=== PATIENT | female | born 1990 | race Caucasian/White ===

== ENCOUNTER 2018-05-29 10:25 | Emergency (ER) | payer OTHER ==
--- NOTE | 2018-05-29 10:53 | UC ---
Eye Complaint HPI - HPI Summary HPI Summary: 27 y/o female presents to the urgent care c/o B/L eye redness and yellowish crusting eye discharge since this morning when she woke up. Pt reports she severe sinusitis around Thanksgiving and her PCP Rx Amoxicillin PO for 10 days. She took full course of ABX and finished it about 1 week ago. she started to developed some yellowish PND and nasal congestion about 2 days ago again. she used some OTC eye drops yesterday to alleviate symptoms w/o any improvement. Pt denies fever, eye pain, photophobia, MONTES, dizziness, SOB, chest pain. abdominal pain, N/v/D. - History of Current Complaint Chief Complaint: UCEye Stated Complaint: EYE ISSUE Time Seen by Provider: 05/29/18 10:47 Hx Obtained From: Patient Hx Last Menstrual Period: 05/21/18 ?: No Onset/Duration: Gradual Onset, Lasting Days - 2 day, Still Present, Worse Since - today Timing: Constant Severity Initially: Mild Severity Currently: Mild Pain Intensity: 1 Pain Scale Used: 0-10 Numeric Location of Injury: Conjunctiva - b/L redness and eye discharge Character: Dull Aggravating Factor(s): Blinking Alleviating Factor(s): Nothing Associated Signs And Symptoms: Positive: Drainage (Purulent). Negative: Photophobia, Vision Impairment Bilateral, Vision Impairment Right, Vision Impairment Left, Fever, Swelling - Risk Factors Penetrating Injury Risk Factor: Negative Globe Rupture Risk Factors: Negative Acute Glaucoma Risk Factors: Negative Optic Artery Occlusion Risk Factors: Negative - Allergies/Home Medications Allergies/Adverse Reactions: Allergies Allergy/AdvReac Type Severity Reaction Status Date / Time No Known Allergies Allergy Verified 05/29/18 10:39 PMH/Surg Hx/FS Hx/Imm Hx Previously Healthy: Yes - Pt denies PMHX - Surgical History Surgical History: Yes Surgery Procedure, Year, and Place: ta - Family History Known Family History: Positive: Hypertension - Social History Occupation: Student Lives: With Family Alcohol Use: Occasionally Substance Use Type: None Smoking Status (MU): Never Smoked Tobacco Review of Systems All Other Systems Reviewed And Are Negative: Yes Constitutional: Positive: Negative Skin: Positive: Negative Eyes: Positive: Drainage - yellowish, Eye Redness - b/L eyes ENT: Positive: Nasal Discharge - yellowish, Sinus Congestion, Other - PND yellowish Respiratory: Positive: Negative Cardiovascular: Positive: Negative Gastrointestinal: Positive: Negative Genitourinary: Positive: Negative Motor: Positive: Negative Neurovascular: Positive: Negative Musculoskeletal: Positive: Negative Neurological: Positive: Negative Psychological: Positive: Negative Is Patient Immunocompromised?: No Physical Exam - Summary Physical Exam Summary: Vital Signs Reviewed: Yes General: Well appearing, well nourished female in no apparent pain distress Eyes: Positive: b/L Conjunctiva Inflamed - Visual acuity: WNL,Visual jiang: full to confrontation. PERRLA, EOMI intact w/out limitation or complaint of pain. eyelashes w/ yellowish crusting and yellowish drainage observed. No ciliary flush. No chemosis, No photophobia. Normal fundoscopic exam; no proptosis, exophthalmos, nystagmus. ENT: Positive: Normal ENT inspection, Hearing grossly normal, Pharynx normal, Nasal congestion, Nasal drainage - clear, TMs normal - B/L external ear canal clear , TM's WNL. Negative: Tonsillar swelling, Tonsillar exudate Neck: Positive: Supple, Nontender, No Lymphadenopathy Respiratory: Positive: Chest nontender, Lungs clear, Normal breath sounds, No respiratory distress Cardiovascular: Positive: RRR, No Murmur, Pulses Normal, Brisk Capillary Refill Abdomen Description: Positive: Nontender, No Organomegaly, Soft. Negative: CVA Tenderness (R), CVA Tenderness (L) Bowel Sounds: Positive: Present Musculoskeletal: Positive: Strength Intact, ROM Intact, No Edema Neurological Exam: Normal Psychological Exam: Normal Skin Exam: Normal Triage Information Reviewed: Yes Vital Signs: Initial Vital Signs Temp 99 F 05/29/18 10:35 Pulse 89 05/29/18 10:35 Resp 17 05/29/18 10:35 BP 110/76 05/29/18 10:35 Pulse Ox 100 05/29/18 10:35 Eye Complaint Course/Dx - Course Course Of Treatment: 27 y/o female presents to the urgent care c/o B/L eye redness and yellowish crusting eye discharge since this morning when she woke up. Pt reports she severe sinusitis around [facility] and her PCP Rx Amoxicillin PO for 10 days. She took full course of ABX and finished it about 1 week ago. she started to developed some yellowish PND and nasal congestion about 2 days ago again. she used some OTC eye drops yesterday to alleviate symptoms w/o any improvement. Pt denies fever, eye pain, photophobia, MONTES, dizziness, SOB, chest pain. abdominal pain, N/v/D. Pt w/ B/L bacterial conjunctivitis on examination. Pt Rx Ofloxacin ophthalmic drops for her bacterial conjunctivitis. Pt also Rx flonase and advised to use saline drops to clear sinuse. Pt advised if symptoms do not improve, advised to return to the urgent care or f/u with PCP or opthalmologist Dr Whitney for further evaluation and treatment. Pt understood and agreed. - Differential Dx/Diagnosis Differential Diagnosis/HQI/PQRI: Conjunctivitis, Periorbital Cellulitis, Orbital Cellulitis, Uveitis Provider Diagnosis: Conjunctivitis, bacterial Discharge - Sign-Out/Discharge Documenting (check all that apply): Patient Departure - d/c home All imaging exams completed and their final reports reviewed: No Studies - Discharge Plan Condition: Stable Disposition: HOME Prescriptions: Fluticasone NASAL SPRAY 50MCG* [Flonase NASAL SPRAY 50MCG*] 2 spray BOTH NARES DAILY #1 btl Ofloxacin 0.3% (Eye Drop) [Ocuflox OPTH 0.3% (Eye Drop)] 1 - 2 drop BOTH EYES Q6HR #1 btl Patient Education Materials: Conjunctivitis (ED) Referrals: [facility] [place] [facility] [Outside] - 3 Days Tip Whitney MD [Medical Doctor] - If Needed Additional Instructions: 1-Please apply ophthalmic drops as instructed and finish the full course of treatment to avoid recurrent infection. Please encourage hand washing to avoid spread 2- Please use the Flonase nasal spray and saline drops to clear sinuses as directed. Increase fluid intake, rest. 3-If you do not improve or if symptoms worsen please f/u with you PCP or foot cutter Dr Whitney for further evaluation and treatment - Billing Disposition and Condition Condition: STABLE Disposition: Home
== END 2018-05-29 11:15 | disposition home or self-care (01) ==
LOC: UCEAST 10:25
DX: H10.33 Unspecified acute conjunctivitis, bilateral (principal)
CPT/HCPCS: 99202; G0463